=== PATIENT | male | born 1960 ===

== ENCOUNTER 2017-09-19 00:40 | Inpatient (IN) | payer BC ==
[2017-09-18 15:39] LABS: INR 0.99
[2017-09-19] VITALS (13 sets, daily range): BP systolic 110–146; BP diastolic 65–111
[~2017-09-19] VITALS: Ht 175.3 cm; Wt 84.8 kg
[~2017-09-19 00:40] MED LIST: ASPI81TA94 PO; ATOR40TA24 PO; LEVO50TA86 PO
--- NOTE | 2017-09-19 04:32 | LEVENE H&P ---
DATE OF ADMISSION: September 19, 2017 IDENTIFICATION, CHIEF COMPLAINT The patient is a 57-year-old gentleman with a chief complaint of left hip pain. HISTORY OF PRESENT ILLNESS The patient has a longstanding history of hip arthritis, progressively painful and debilitating, refractory to conservative care. Surgery is indicated to relieve symptoms after failure of nonoperative measures. PAST MEDICAL HISTORY Notable for a bundle branch blockage, hypercholesterolemia and hypothyroidism. ALLERGIES He is ALLERGIC TO SHRIMP, but has no known drug allergies. CURRENT MEDICATIONS 1. Baby aspirin a day. 2. Atorvastatin 40 mg a day. 3. Synthroid 60 mcg per day. PAST SURGICAL HISTORY Notable for appendectomy and ulnar nerve transplantation. FAMILY HISTORY Notable for a sister with hip problems and a father with a history of NE. SOCIAL HISTORY Negative for tobacco. He drinks alcohol on a social basis, about three drinks per week, denies abuse. REVIEW OF SYSTEMS Notable for problems with his contralateral hip as well. PHYSICAL EXAMINATION GENERAL: This is a well-developed, well-nourished male who appears stated age. HEENT: Normocephalic, atraumatic. NECK: Supple. LUNGS: Clear. HEART: Regular. ABDOMEN: Soft. ORTHOPEDIC EXAM: The hip is very stiff at the end range of motion. Combined flexion and rotation reproduces his pain. Hip girdle strength is normal. Skin envelope is intact. Neurovascular function is intact. RADIOGRAPHIC DATA Radiographs demonstrate end-stage hip arthritis. ASSESSMENT Left hip end-stage degenerative joint disease, progressively painful and debilitating, refractory to conservative care. PLAN Per patient request, we are going to proceed with hip replacement. Nature of this procedure, risks, benefits, the anticipated rehab course were reviewed. The risks of the procedure include, but are not limited to, , major medical or anesthetic complication, infection, neurovascular injury, blood transfusion, leg length inequality, hip dislocation or instability, implant loosening, migration or failure, persistent or recurrent pain, need for additional surgery, and other unforeseen. He understands and wishes to proceed. Signed permit was placed in the chart, no guarantees given or implied. LUIS
[2017-09-19] MEDS: NORMOSOL R SOLN(*) 1000 ML BAG 1,000 ML IV PRN ×2 (11:56→13:46)
[2017-09-19] MEDS ORDERED: TRANEXAMIC AC 1000 MG/10ML SDV 1,000 MG in DEXTROSE 5% 50 ML BAG 50 ML IV ONE (13:45)
[2017-09-19] MEDS ORDERED: ceFAZolin(*) 2GM/D5W 50ML 50 ML IVPB ONE (13:45)
[2017-09-19] MEDS ORDERED: cloNIDine EPIDUR INJ 100MCG/ML 40 MCG, ROPIVACAINE 0.5% 20 ML VIAL 25 ML, EPINEPHrine H... INJ ONE (13:45)
[2017-09-19] MEDS ORDERED: LIDOCAINE/SOD BICARB 8.4% SYR ID ONE (13:45)
[2017-09-19] MEDS ORDERED: FAMOTIDINE 20 MG TAB PO ONE (13:45)
[2017-09-19] MEDS ORDERED: MIDAZOLAM 2 MG/2 ML VIAL IVP ONE (13:45)
[2017-09-19] MEDS ORDERED: DEXAMETHASONE SOD PHOS 10MG/ML ONE (14:00)
[2017-09-19] MEDS ORDERED: SUCCINYLCHOL CHL 200MG/10ML VL ONE (14:00)
[2017-09-19] MEDS ORDERED: ROCURONIUM BROM 10 MG/ML 10 ML ONE (14:00)
[2017-09-19] MEDS ORDERED: MORPHINE PF 5 MG/10 ML AMP ONE (14:07)
[2017-09-19] MEDS ORDERED: LACTATED RINGER 3000 ML BAG IR ONE (14:51)
[2017-09-19] MEDS ORDERED: SUGAMMADEX SOD 500 MG/5 ML SDV ONE (15:47)
[2017-09-19] MEDS ORDERED: BISACODYL 10 MG SUPP PR PRN (16:20)
[2017-09-19] MEDS ORDERED: diphenhydrAMINE 50 MG/ML VIAL IVP PRN (16:20)
[2017-09-19] MEDS ORDERED: ZOLPIDEM TARTRATE 5 MG TAB PO PRN (16:20)
[2017-09-19] MEDS ORDERED: MAGNESIUM HYDROXIDE* 30ML UDCP PO PRN (16:20)
[2017-09-19] MEDS ORDERED: APAP/HYDROCODONE 325/7.5 TAB PO PRN (16:20)
[2017-09-19] MEDS ORDERED: NALOXONE HCL 0.4 MG/ML VIAL IVP PRN (16:20)
[2017-09-19] MEDS ORDERED: NORMOSOL R SOLN(*) 1000 ML BAG 1,000 ML IV PRN (16:20)
[2017-09-19] MEDS ORDERED: FLUSH 10 ML SYR IVP PRN (16:20)
[2017-09-19] MEDS ORDERED: diphenhydrAMINE 25 MG CAP PO PRN ×2 (16:20)
[2017-09-19] MEDS ORDERED: ACETAMINOPHEN 325 MG TAB PO PRN (16:20)
[2017-09-19] MEDS ORDERED: DIAZEPAM 5 MG TAB PO PRN (16:20)
[2017-09-19] MEDS ORDERED: PROMETHAZINE 25 MG/ML 1 ML AMP IVP PRN (16:20)
[2017-09-19] MEDS ORDERED: BENZOCAINE/MENTHOL 1 EACH LOZG PO PRN (16:20)
[2017-09-19] MEDS ORDERED: ONDANSETRON 4 MG/2 ML VIAL IVP PRN (16:20)
[2017-09-19] MEDS: CELECOXIB 200 MG CAP PO SCH (18:01)
--- NOTE | 2017-09-19 20:23 | RADIOLOGY IMAGING REPORT ---
FACILITY: [facility] - [place] PATIENT NAME: Bhargav Anderson : 1960 MR: [id number] V: [id number] EXAM DATE: ORDERING PHYSICIAN: BARBI BRASWELL TECHNOLOGIST: Location: [facility] Patient: Bhargav Anderson : 1960 Visit/Account:[id number] Date of Sevice: 09/19/2017 EXAMINATION: Left hip radiograph single view HISTORY: Confirm placement of left total hip. COMPARISON: None. FINDINGS: AP view of the left hip, including the lower pelvis and right hip is obtained. Bones: There is no periprosthetic fracture. Joint spaces: Mild joint space narrowing and bony spurring of the right hip. Hardware: Left total hip arthroplasty is well-positioned on this single image. Alignment: Normal. Soft tissues: Small amount of soft tissue gas on the left with skin yobany laterally related to rec ent surgery. IMPRESSION: 1. Left total hip arthroplasty without evidence of postoperative complication. 2. Mild degenerative joint disease of the right hip is suspicious for osteoarthritis. Report Dictated By: Brigitte Winn MD at 09/19/2017 8:18 PM Report E-Signed By: Brigitte Winn MD at 09/19/2017 8:19 PM [id number]
[2017-09-19] MEDS ORDERED: THYR60TA25 PO (20:28)
--- NOTE | 2017-09-19 21:33 | Hospitalist Progress Note ---
Subjective Progress Notes Subjective No cp/sob. No concerns from patient or staff. 1400cc of crystalloid, dexamethasone, and TXA given intra-op. Physical Exam Vital Signs Date Time Temp Pulse Resp B/P (MAP) Pulse Ox O2 Delivery O2 Flow Rate FiO2 09/19/17 19:00 77 129/111 (117) 94 09/19/17 17:30 12 09/19/17 17:30 97.7 Nasal Cannula 1.0 Intake and Output 09/20/17 07:00 Intake Total 1900 ml Output Total 0 ml Balance 1900 ml Intake Oral 200 ml IV Total 1700 ml Output Urine Total 0 ml Emesis 0 ml # Voids 0 # Bowel Movements 0 General Appearance: Alert, Awake, No Acute Distress Cardiovascular: Regular Rate and Rhythm Respiratory: Clear to Auscultation Extremities: No Edema Assessment and Plan Problems: (1) Status post hip replacement Status: Acute Assessment & Plan: No CV/pulmonary issues. The patient has no history of DVT/ PE. The patient will be on ASA 325mg a day for 30 days after surgery for blood clot prevention. (2) Hypothyroid Status: Chronic Assessment & Plan: Continue chronic [place] thyroid. (3) Hyperlipemia Status: Chronic Assessment & Plan: Continue chronic atorvastatin. (4) Left bundle branch block (LBBB) Status: Chronic Assessment & Plan: He was cleared by cardiology pre-op and had an echo. Exam Sepsis Risk: No Definite Risk Problem Qualifiers (1) Status post hip replacement: Laterality: left Qualified Codes: Z96.642 - Presence of left artificial hip joint MAGNOLIA HOFFMAN MD Sep 19, 2017 21:33
[2017-09-19] MEDS: ceFAZolin 1 GM VIAL IVP SCH (22:41)
[2017-09-20] VITALS: BP 122/79
[2017-09-20 04:00] VITALS: BP 96/52
[2017-09-20] MEDS: ceFAZolin 1 GM VIAL IVP SCH (05:57)
[2017-09-20] MEDS ORDERED: THYROID 60 MG TAB PO SCH (06:30)
[2017-09-20 06:53] VITALS: BP 97/60
[2017-09-20] MEDS ORDERED: HYDR-4308 PO (07:37)
[2017-09-20] MEDS ORDERED: CELE-1 PO (07:37)
[2017-09-20] MEDS ORDERED: ASPI-757 PO (07:40)
[2017-09-20] MEDS: CELECOXIB 200 MG CAP PO SCH (08:13)
--- NOTE | 2017-09-20 08:41 | Hospitalist Progress Note ---
Subjective Progress Notes Subjective No cp/sob. No concerns from patient or staff. Physical Exam Vital Signs Date Time Temp Pulse Resp B/P (MAP) Pulse Ox O2 Delivery O2 Flow Rate FiO2 09/20/17 06:56 94 Nasal Cannula 1.0 09/20/17 06:53 98.3 67 12 97/60 (72) General Appearance: Alert, Awake, No Acute Distress Respiratory: Clear to Auscultation Assessment and Plan Problems: (1) Status post hip replacement Status: Acute Assessment & Plan: No CV/pulmonary issues. The patient has no history of DVT/ PE. The patient will be on ASA 325mg a day for 30 days after surgery for blood clot prevention. (2) Hypoxia Status: Acute Assessment & Plan: It is secondary to recent anesthesia, narcotics, and Depue 's high elevation. Lungs are clear. There is low clinical suspicion for pneumonia and PE. If he goes home on O2, he needs to follow up with his PCP in 1-2 days to check a room air saturation. (3) Hypothyroid Status: Chronic Assessment & Plan: Continue chronic [place] thyroid. (4) Hyperlipemia Status: Chronic Assessment & Plan: Continue chronic atorvastatin. (5) Left bundle branch block (LBBB) Status: Chronic Assessment & Plan: He was cleared by cardiology pre-op and had an echo. Exam Sepsis Risk: No Definite Risk Problem Qualifiers (1) Status post hip replacement: Laterality: left Qualified Codes: Z96.642 - Presence of left artificial hip joint MAGNOLIA HOFFMAN MD Sep 20, 2017 08:41
[2017-09-20] MEDS ORDERED: ASPIRIN 325 MG TAB PO SCH (09:00)
[2017-09-20] MEDS ORDERED: ATORVASTATIN 40 MG TAB PO SCH (09:00)
--- NOTE | 2017-09-20 09:02 | OPERATIVE REPORT 1 ---
EVENT DATE: September 19, 2017 SURGEON: Shady Borja MD ANESTHESIOLOGIST: Shamar Rae MD ANESTHESIA: General plus spinal. MEDICAL IMAGING SPECIALIST: KYREE Flores GYPSUM ROOFER PREOPERATIVE DIAGNOSIS Left hip degenerative joint disease. POSTOPERATIVE DIAGNOSIS Left hip degenerative joint disease. PROCEDURE Left total hip arthroplasty. ESTIMATED BLOOD LOSS 200 mL. DRAINS None. SPECIMENS None. COMPLICATIONS No apparent. IMPLANTS USED [employer] system with a Trident PSL QUINTANILLA cluster acetabular shell, 52, Trident X3 0- degree poly liner to accommodate a 36 mm head and Secur-Fit Max 132 degree neck angle hip stem size 9, Biolox Delta ceramic C taper femoral head, +7.5, 36 mm diameter. INDICATIONS Arturo is a 57-year-old gentleman with progressive pain, stiffness and disability related to end-stage hip arthritis. Surgery is indicated to relieve symptoms after failure of nonoperative measures. DESCRIPTION OF PROCEDURE Patient is taken to the operating room, placed supine on the operating room table. Spinal block is administered by the anesthesiologist. General anesthesia is induced. Antibiotics and TXA are administered IV. The patient is positioned right lateral decubitus on a well-padded peg board with his pelvis secured in a vertical position. All bony prominences and superficial nerves are well padded. Left hip girdle and lower extremity are prepped and draped free in the usual sterile fashion for hip arthroplasty. A small incision posterolateral approach is made, incision centered over the tip of the troch, carried down through the skin and subcu to the deep fascia. Fascia is incised over the tip of the trochanter, extended distally in line with the femur , proximally in line with the kirk fibers. Kirk fibers are split bluntly. Trochanteric bursa is excised. Abductor mechanism is protected with a blunt Hohmann. An L capsulotomy/tenotomy is performed with the superior limb horizontally just above the pyriformis, and the capsule and external rotators are peeled off the posterolateral femur, tagged with #2 Vicryl for later anatomic reattachment. Femoral head is dislocated. End-stage arthritic change is noted. A 1.5 cm neck cut is made consistent with preoperative templating. Femoral head is extracted. Femur is translocated anteriorly. Periacetabular retractors are placed with the tips down on bone to avoid injury to critical neurovascular structures. There is a large shelf laterally, pseudo acetabular shelf. This will be addressed in a bit. First, medialization of the true medial wall of the acetabulum is performed with a 44. This is expanded in 2 mm increments up to 52, where nice rim contact is obtained. A 52 trial shell has nice line to line fit. Using the trial shell in place, the built up shell of the osteophyte is resected peripherally using an osteotome and peeling the osteophytes away from the soft tissue. The 53 reamer is used to open the mouth of the acetabulum, and then the actual 52 raised rim PSL hydroxyapatite-coated shell was impacted. Using the extracorporeal guide, the internal bony landmarks and the transverse acetabular ligament to place the socket about 40 degrees of abduction and 15 degrees of anteversion. Rock solid fixation is achieved. No adjuvant fixation is felt to be needed. Shell is lavaged and dried, and the actual liner is locked into the shell. Attention is turned to femoral preparation. Superior neck is resected with a cookie cutter. Marla awl finds the canal. Tapered reaming is performed up to 9, where nice endosteal contact is obtained. Broaching starts at 7, works up to 9. The 9 broach has good fit and fill. Care is taken to lateralize and ensure anteversion following the [place] at about 12-15 degrees. Trial reduction performed off the 9 broach, and anabaptist of limb length and stability are achievable. The +7.5 is optimal. The broach is then extracted, and the actual stem is impacted. It seats at about the same height, maybe a millimeter or so proud compared to the broach. Trial reduction is performed with various neck lengths. The +7.5 is felt to be optimal for anabaptist of soft tissue tension, stability and limb length. The Blount taper is lavaged and dried, and the actual Biolox head is impacted onto the Blount taper. Joint is reduced. External rotators and capsule are reapproximated anatomically through drill holes in the back of the trochanter with a #2 Vicryl. Deep fascia is closed distally with #2-Ethibond, proximally with #2-Vicryl. Subcu is lavaged , hemostasis ensured. Dermis is closed with 3-0 Vicryl, skin with surgical yobany, Xeroform is applied followed by dry sterile dressing and a hip wrap. Patient is rolled supine. Abduction pillow is placed. He is awakened from anesthesia and taken to the recovery room in stable condition, having tolerated procedure well. Plan is for standard JOHN rehab protocol. MTDD
== END 2017-09-20 12:10 | disposition home or self-care (01) | DRG 470 ==
LOC: OR 00:40 → MED 17:30
PROVIDERS: ADMIT Orthopaedic Surgery; ATTEND Orthopaedic Surgery
PROC: 0SRB04Z Replacement of Left Hip Joint with Ceramic on Polyethylene Synthetic Substitute, Open Approach (ICD-10-PCS; principal; 2017-09-19 13:58)
DX: M16.12 Unilateral primary osteoarthritis, left hip (principal); E78.00 Pure hypercholesterolemia, unspecified; E03.9 Hypothyroidism, unspecified; I44.7 Left bundle-branch block, unspecified; R09.02 Hypoxemia; T70.29XA Other effects of high altitude, initial encounter; T40.605A Adverse effect of unspecified narcotics, initial encounter; Y92.230 Patient room in hospital as the place of occurrence of the external cause; Y83.8 Other surgical procedures as the cause of abnormal reaction of the patient, or of later complication, without mention of misadventure at the time of the procedure; Y79.3 Surgical instruments, materials and orthopedic devices (including sutures) associated with adverse incidents; Z91.013 Allergy to seafood; Z88.8 Allergy status to other drugs, medicaments and biological substances
CPT/HCPCS: 36415; 85610; 86850; 86900; 86901; 97161; 97165; C1776; J0171; J0330; J0690; J0735; J1100; J1885; J2250; J2270; J2405; J2795; J7050; J7060; Q0163